=== PATIENT | female | born 2005 | race Caucasian/White ===

== ENCOUNTER 2024-06-13 22:09 | Emergency (ER) | payer OTHER, SELFPAY ==
--- NOTE | ~2024-06-13 | CT_ITS ---
History: Chronic migraines PROCEDURE: CT head without contrast. COMPARISON: None TECHNIQUE: Axial imaging of the head performed from the skull base to the vertex without IV contrast. Sagittal a nd coronal reformations obtained. DLP: 605 mGy-cm FINDINGS: The ventricles are normal in size, shape and position. There is no mass, mass effect or midline shift. There is no abnormal extra-axial fluid collection or intracranial hemorrhage. Visualized paranasal sinuses are clear. The mastoid air cells are well aerated. No acute displaced fractures within the overlying cranium. Impression: No acute intracranial hemorrhage or suspicious mass effect. Reviewed, dictated and finalized at location A. Impression: No acute intracranial hemorrhage or suspicious mass effect.
[2024-06-13 22:10] VITALS: BP 137/96; PULSE 80; RESP 15; TEMP 36.1; O2SAT 100
--- OUTSIDE RECORDS SUMMARY | 2024-06-13 22:11 | XMS_ITS | Referral Summary ---
Author Organization [facility] Address [address] [place] [address] Care Team Providers Care Director Of Athletics Name Role Phone Maryellen Barrett NP Primary Care Provider + Encounters Date Type Department Care Team Description 06/13/2024 Orders Only [facility] [address] [facility] [address] [place] [address] Maryellen Barrett NP New persistent daily headache (Primary Dx) 06/03/2024 Orders Only [facility] [address] [facility] [facility] [address] [place] [address] Maryellen Barrett NP from Last 3 Months Allergies No known active allergies Medications topiramate (TOPAMAX) 25 mg tablet TAKE 1 TABLET TWICE A DAY (NEED APPOINTMENT PRIOR TO ADDITIONAL REFILLS) 180 tablet 3 4 Active polysaccharide iron complex (NU-IRON) 150 mg iron capsuleIndicat ions:Iron Deficiency Anemia Take 1 capsule (150 mg total) by mouth daily 90 capsule 5 Active polysaccharide iron complex (NU-IRON) 150 mg iron capsuleIndicat ions:Iron Deficiency Anemia Take 1 capsule (150 mg total) by mouth daily 90 capsule 4 06/04/19 25 Discontin ued(Reord er) Active Problems Problem Noted Date Diagnosed Date Dysmenorrhea 11/30/2023 Assessment & Plan (11/30/2023 3:09 PM CDT): Labs Irregular menses 04/11/2022 New persistent daily headache 04/11/2022 Assessment & Plan (11/30/2023 3:10 PM CDT): Labs today Is on topamax 25mg BID Eye exam UTD Sleeps well Assessment & Plan (01/01/2023 3:34 PM CDT): Continue topamax 25mg BID Encouraged to wear glasses more Needs influenza vaccination Assessment & Plan (07/11/2022 11:02 AM CDT): Continue Topamax 25mg BID Assessment & Plan (04/11/2022 11:35 AM SIEBEL CONSULTANT): I encouraged her to return for repeat eye exam and ensure compliance with her glasses As these are daily I do not feel they are hormonal related We will trial topamax 25mg HS x 2 weeks if no improvement can increase to BID and notify me We will see her back in 3 months for further evaluation, sooner if needed Resolved Problems Problem Noted Date Diagnosed Date Resolved Date Left anterior cruciate ligament tear 09/10/2020 04/11/2022 Overview (09/10/2020): Added automatically from request for surgery [id number] Hypercholesterolemia 08/04/2019 023 On isotretinoin therapy 11/25/2016 02/0 05/2021 Postinflammatory hyperpigmentation 07/09/2015 04/11/2022 Acne 07/09/2015 04/11/2022 Immunizations Immunization Administration Dates Next Due DTaP, Unspecified 10/24/2008, 5,2003,07/02,2003 Flucelvax Influenza Quad 11/04/2019 HPV9 08/21/2016,04/25/2016,02/21/2016 Hep A, Unspecified 09/19/2011,10/24/2008 Hep B / HiB 03/11/2004,2003,2003 Influenza, Quadrivalent, Spl it, Intramuscular 01/30/2019 Influenza, Quadrivalent, Spl it, Preservative Free, Intramuscular 01/30/2019 Influenza, Unspecified 02/21/2016,02/19/2015,02/2004 MMR 10/24/2008,03/11/2004 Meningococcal B, unspecified 12/08/2014 Pneumococcal Conjugate PCV 13 03/11/2004 ,2003,2003,04/27 Polio, Unspecified 10/24/2008, 4,2003,04/27 Tdap 02/08/2014 Varicella 10/24/2008,08/22/2004 Social History Tobacco Use Types Packs/Day Years Used Date Smoking Tobacco: Never Smokeless Tobacco: Never AUDIT-C Answer Date Recorded Q1: How often do you have a drink containing alc ohol? Never 09/20/2020 Average Number of Drinks Not on file 021 Q3: How often do you have si x or more drinks on one occasion? Never 09/20/2020 Personal Safety Answer Date Recorded Getting School Help Needed Not on file 05/29 Comments No Sex and Gender Information Value Date Recorded Sex Assigned at Not on file Legal Sex Female 11:23 AM SIEBEL CONSULTANT Gender Identity Not on file Sexual Orientation Not on file Last Filed Vital Signs Vital Sign Reading Time Taken Comments Blood Pressure 126/84 11/30/2023 2:40 PM CDT Pulse 103 11/30/2023 2:40 PM CDT Temperature 36.6 C (97.8 F) 01/31/2022 2:34 PM SIEBEL CONSULTANT Respiratory Rate 18 10/08/2020 6:46 PM CDT Oxygen Saturation 98% 11/30/2023 2:40 PM CDT Inhaled Oxygen Concentration - - Weight 72.6 kg (160 lb) 11/30/2023 2:40 PM CDT Height 160 cm (5' 3 ) 11/30/2023 2:40 PM CDT Body Mass Index 28.34 11/30/2023 2:40 PM CDT Plan of Treatment Not on file Medical Devices Implanted Type Area Air Export Agent Device Identifier Shelf Expiration Date Model / Serial / Lot Luna [employer] Nephew Endoscopy [id number] Ultra Fast-Fix Curve Device Fixation Meniscal Repair System - [id number] Implanted:Qty: 1 on 10/02/2020 by Gama Luna MD at [facility] [place] Left: Knee [employer] Endoscopy 01/02/2025 [id number] / / [id number] [employer]hew Endoscopy [id number] Ultra Fast-Fix Curve Device Fixation Meniscal Repair System - [id number] Implanted:Qty: 1 on 10/02/2020 by Gama Luna MD at [facility] Left: Knee Luna [employer] Nephew Endoscopy 01/02/2025 [id number] / / [id number] [employer] Ar-1370e 7mm 20mm Cannulated Sheath Acl Pcl Screw Interference Titanium - [id number] Implanted:Qty: 1 on 10/02/2020 by Gama Luna MD at [facility] Left: Knee [employer] 04/15/2025 AR-1370E / / [id number] [employer] Ar-1370e 7mm 20mm Cannulated Sheath Acl Pcl Screw Interference Titanium - [id number] Implanted:Qty: 1 on 10/02/2020 by Gama Luna MD at [facility] Left: Knee [employer] 04/15/2025 AR-1370E / / [id number] Insurance [employer] OPEN ACCESS [employer] OPEN ACCESS LOCAL PLUS LOCAL PLUS Care Teams Director Of Athletics Relationship Specialty Start Date End Date Maryellen Barrett NP [address] [facility] [address] [address] PCP - General Nurse Practitioner 04/04/22
--- OUTSIDE RECORDS SUMMARY | 2024-06-13 22:11 | XMS_ITS | Encounter Summary ---
Author Organization [facility] Address [address] [place] [address] Care Team Providers Care Auctioneer Art Name Role Phone Maryellen Barrett NP Primary Care Provider + Reason for Referral * Consultation (Routine) - Pending Review Specialty Diagnoses / Procedures Referred By Rebel mckinney Referred To Contact Neurology Diagnoses New persistent daily headache Maryellen Barrett NP [address] [facility] [address] [address] Phone: tel: fax: Crista Shah MD PhD [address] [place] [address] Phone: tel: fax: Referral ID Status Reason Start Date Expiration Date Visits Requested Visits Authorized [id number] Pending Review Specialty Services Required 06/13/2024 07/13/2025 1 1 Question Answer Please select the performing region: [facility] (All Locations) [167] To provider: CRISTA SHAH [[id number]] # of visits: 1 Encounter Details Date Type Department Care Team (Late st Contact Info) Description 06/13/2024 Orders Only [facility] [address] [facility] [address] [place] [facility] [place] [address] Maryellen Barrett NP [address] [facility] [address] [place], [place] [id number] New persistent daily headache (Primary Dx) Social History Tobacco Use Types Packs/Day Years [...] on file Legal Sex Female 11:23 AM BUTTON MAKER AND INSTALLER Gender Identity Not on file Sexual Orientation Not on file documented as of this encounter Plan of Treatment Scheduled Referrals Name Type Priority Associated Diagnoses Order Schedule Ambulatory referral to Neurology Outpatient Referral Routine New persistent daily headache Expected: 06/20/2024 (Approximate), Expires: 06/13/2025 documented as of this encounter Visit Diagnoses Diagnosis New persistent daily headache- Primary New daily persistent headache documented in this encounter Care Teams Auctioneer Art Relationship Specialty Start Date End Date Maryellen Barrett NP [address] [facility] [address] [place] [address] PCP - General Nurse Practitioner 04/04/22 documented as of this encounter
--- OUTSIDE RECORDS SUMMARY | 2024-06-13 22:12 | XMS_ITS | Clinical Summary ---
Author Organization [facility] Address [address] [place] [address] Care Team Providers Care Contract Mail Carrier Name Role Phone Maryellen Barrett NP Primary Care Provider + Allergies No known active allergies Medications topiramate [...] BID Assessment & Plan (04/11/2022 11:35 AM BALLOON SELLER): I encouraged her to return for repeat [...] (09/10/2020): Added automatically from request for surgery [id number] Hypercholesterolemia 08/04/2019 023 On isotretinoin therapy 11/25/2016 02/0 05/2021 Postinflammatory hyperpigmentation 07/09/2015 04/11/2022 Acne 07/09/2015 04/11/2022 Encounters Date Type Department Care Team Description 06/13/2024 Orders Only [facility] [address] [place] [address] Maryellen Barrett NP New persistent daily headache (Primary Dx) 06/03/2024 Orders Only [facility] [address] [place] [address] Maryellen Barrett NP from Last 3 Months Immunizations Immunization Administration Dates Next Due DTaP, Unspecified 10/24/2008, 5,2003,07/02,2003 Flucelvax Influenza Quad 11/04/2019 HPV9 08/21/2016,04/25/2016,02/21/2016 Hep A, Unspecified 09/19/2011,10/24/2008 Hep B / HiB 03/11/2004,2003,2003 Influenza, Quadrivalent, Spl it, Intramuscular 01/30/2019 Influenza, Quadrivalent, Spl it, Preservative Free, Intramuscular 01/30/2019 Influenza, Unspecified 02/21/2016,02/19/2015,02/2004 MMR 10/24/2008,03/11/2004 Meningococcal B, unspecified 12/08/2014 Pneumococcal Conjugate PCV 13 03/11/2004 ,2003,2003,04/27 Polio, Unspecified 10/24/2008, 4,2003,04/27 Tdap 02/08/2014 Varicella 10/24/2008,08/22/2004 Surgical History Surgery Date Site/Laterality Comments ANTERIOR CRUCIATE LIGAMENT REPAIR 10/02/2020 Left Medical History Medical History Date Comments Headache 04/03/2020 Left anterior cruciate ligam ent tear 09/10/2020 Added automatically from [employer] for surgery [id number] Family History Medical History Relation Name Comments Anesthesia problems Mother Reports itchy all over anesthesia Heart disease Paternal Grandmother Relation Name Status Comments Mother Paternal Grandmother Social History Tobacco Use Types Packs/Day Years [...] on file Legal Sex Female 11:23 AM BALLOON SELLER Gender Identity Not on file Sexual Orientation Not on file Obstetrics History Last Filed Vital Signs Vital Sign Reading Time Taken Comments Blood Pressure 126/84 11/30/2023 2:40 PM CDT Pulse 103 11/30/2023 2:40 PM CDT Temperature 36.6 C (97.8 F) 01/31/2022 2:34 PM BALLOON SELLER Respiratory Rate 18 10/08/2020 6:46 PM CDT Oxygen Saturation 98% 11/30/2023 2:40 PM CDT Inhaled Oxygen Concentration - - Weight 72.6 kg (160 lb) 11/30/2023 2:40 PM CDT Height 160 cm (5' 3 ) 11/30/2023 2:40 PM CDT Body Mass Index 28.34 11/30/2023 2:40 PM CDT Plan of Treatment Health Maintenance Due Date Last Done Comments Cervical Cancer Screening 2003 Depression Screening 2003 Hepatitis C Screening 2003 Regular Well Visit/Exam 18-64 2021 Covid-19 Vaccine (5 - 2023-2 5 season) 2023 01/10/2022, 03/11/2021, 07/10/2020, Additional history exists DTaP/Tdap/Td Vaccine (7 - Td or Tdap) 02/09/2024 02/08/2014, 10/24/2008, 08/22/2004, Additional history exists Hepatitis B Screening Completed 03/11/2004 , 2003, 2003 Pneumococcal vaccine <65 Completed 004, 2003, 2003, Additional history exists Varicella Vaccines Completed 10/24/2008, 08/22/2004 HPV Vaccines Completed 08/21/2016, 04/16, 02/21/2016 Meningococcal Vaccine Completed 09/12/2020, 015 Meningococcal B Vaccine Completed 10/17/19 21, 09/12/2020, 12/08/2014 Influenza Vaccine Completed 02/09/2024, , 01/07/2021, Additional history exists Medical Devices Implanted Type Area Sandwich Counter Attendant Device Identifier Shelf Expiration Date Model / Serial / Lot Luna [employer] Nephew Endoscopy [id number] Ultra Fast-Fix Curve Device Fixation Meniscal Repair System - [id number] Implanted:Qty: 1 on 10/02/2020 by Gama Luna MD at [facility] [place] Left: Knee [employer] Endoscopy 01/02/2025 [id number] / / [id number] [employer]hew Endoscopy [id number] Ultra Fast-Fix Curve Device Fixation Meniscal Repair System - [id number] Implanted:Qty: 1 on 10/02/2020 by Gama Luna MD at [facility] [place] Left: Knee [employer] Endoscopy 01/02/2025 [id number] / / [id number] [employer] Ar-1370e 7mm 20mm Cannulated Sheath Acl Pcl Screw Interference Titanium - [id number] Implanted:Qty: 1 on 10/02/2020 by Gama Luna MD at [facility] Left: Knee [employer] 04/15/2025 AR-1370E / / [id number] [employer] Ar-1370e 7mm 20mm Cannulated Sheath Acl Pcl Screw Interference Titanium - [id number] Implanted:Qty: 1 on 10/02/2020 by Gama Luna MD at [facility] [place] Left: Knee [employer] 04/15/2025 AR-1370E / / [id number] Insurance [employer] OPEN ACCESS [employer] OPEN ACCESS LOCAL PLUS LOCAL PLUS Care Teams Contract Mail Carrier Relationship Specialty Start Date End Date Maryellen Barrett NP [address] [address] PCP - General Nurse Practitioner 04/04/22
--- OUTSIDE RECORDS SUMMARY | 2024-06-13 22:38 | XMS_ITS | Clinical Summary ---
Author Organization [facility] Address [address] [place] [address] Care Team Providers Care Package Wrapper Name Role Phone Unavailable Primary Care Provider Unavailabl e Source Comments [facility],non-owned Affiliates and Associated Physician Practices is amultiple site organization consisting of ambulatory clinics and hospital sitesin [place], [place], [place] and [place]. This disclosure is being madepursuant to the Care Everywhere program and may not contain all information available regarding this patient. Last updated 17.[employer] [facility] Allergies No known active allergies Medications Be aware that medications may not be up to date on this document. Always verify current medications with the patient. No known medications Active Problems No known active problems Family History Medical History Relation Name Comments Hyperlipidemia Mother Relation Name Status Comments Father Alive Maternal Grandfather Alive Maternal Grandmother Mother Alive Paternal Grandfather Paternal Grandmother Alive Sister 1 Alive Social History Tobacco Use Types Packs/Day Years Used Date Smoking Tobacco: Never Passive Smoke Exposure: Never Smokeless Tobacco: Never Tobacco Cessation:Counseling Given: No Alcohol Use Standard Drinks/Week Comments Never 0 (1 standard drink = 0.6 oz pur e alcohol) Sex and Gender Information Value Date Recorded Sex Assigned at Not on file Gender Identity Not on file Sexual Orientation Not on file Last Filed Vital Signs Vital Sign Reading Time Taken Comments Blood Pressure 122/74 02/13/2022 9:24 AM VETERINARIAN Pulse 80 02/13/2022 9:24 AM VETERINARIAN Temperature 37.2 C (98.9 F) 02/13/2022 9:24 AM VETERINARIAN Respiratory Rate 20 02/13/2022 9:24 AM VETERINARIAN Oxygen Saturation - - Inhaled Oxygen Concentration - - Weight 73 kg (161 lb) 02/13/2022 9:24 AM VETERINARIAN Height 162.6 cm (5' 4 ) 02/13/2022 9:24 AM VETERINARIAN Body Mass Index 27.64 02/13/2022 9:24 AM VETERINARIAN Plan of Treatment Health Maintenance Due Date Last Done Comments PAP SMEAR 2003 HIV SCREENING 2018 HPV VACCINE (1 - 3-dose series) 2018 CHLAMYDIA/GONORRHEA SCREENING 2019 MENINGOCOCCAL (Group B) VACC INE SHARED DECISION-MAKING (1 of 2 - Standard) 2019 HEPATITIS C SCREENING 02/18/2021 DTAP/TDAP/TD VACCINES (1 - Tdap) 2022 HEPATITIS B VACCINE (1 of 3 - 19+ 3-dose series) 2022 COVID-19 VACCINE (1 - 2023-2 5 season) 2023 INFLUENZA VACCINE (#1) 2023 DEPRESSION SCREENING 03/16/2024 ZOSTER VACCINE (1 of 2) 2053 HIB VACCINE Aged Out No longer eligi ble based on patient's age to complete this topic MENINGOCOCCAL GROUPS A/C/Y/W VACCINE Aged Out No longer eligible b ased on patient's age to complete this topic PNEUMOCOCCAL VACCINE Aged Out No long er eligible based on patient's age to complete this topic
--- OUTSIDE RECORDS SUMMARY | 2024-06-13 22:38 | XMS_ITS | Referral Summary ---
Author Organization [facility] Address [address] [place] [address] Care Team Providers Care Dude Ranch Manager Name Role Phone Maryellen Barrett NP Primary Care Provider + Encounters Date Type Department Care Team Description 06/13/2024 Orders Only [facility] [address] [facility] [place] [address] Maryellen Barrett NP New persistent daily headache (Primary Dx) 06/03/2024 Orders Only [facility] [address] [facility] [address] [place] [address] Maryellen Barrett NP from Last [...] BID Assessment & Plan (04/11/2022 11:35 AM GRAIN ELEVATOR MOTOR STARTER): I encouraged her to return for repeat [...] (09/10/2020): Added automatically from request for surgery [id number] Hypercholesterolemia 08/04/2019 023 On isotretinoin therapy 11/25/2016 [...] on file Legal Sex Female 11:23 AM GRAIN ELEVATOR MOTOR STARTER Gender Identity Not on file Sexual Orientation Not on file Last Filed Vital Signs Vital Sign Reading Time Taken Comments Blood Pressure 126/84 11/30/2023 2:40 PM CDT Pulse 103 11/30/2023 2:40 PM CDT Temperature 36.6 C (97.8 F) 01/31/2022 2:34 PM GRAIN ELEVATOR MOTOR STARTER Respiratory Rate 18 10/08/2020 6:46 PM CDT Oxygen Saturation 98% 11/30/2023 2:40 PM CDT Inhaled Oxygen Concentration - - Weight 72.6 kg (160 lb) 11/30/2023 2:40 PM CDT Height 160 cm (5' 3 ) 11/30/2023 2:40 PM CDT Body Mass Index 28.34 11/30/2023 2:40 PM CDT Plan of Treatment Not on file Medical Devices Implanted Type Area Promotional Representative Device Identifier Shelf Expiration Date Model / Serial / Lot Luna [employer] Nephew Endoscopy [id number] Ultra Fast-Fix Curve Device Fixation Meniscal Repair System - [id number] Implanted:Qty: 1 on 10/02/2020 by Gama Luna MD at [facility] [place] Left: Knee [employer]hew Endoscopy 01/02/2025 [id number] / / [id number] Luna [employer] Nephew Endoscopy [id number] Ultra Fast-Fix Curve Device Fixation Meniscal Repair System - [id number] Implanted:Qty: 1 on 10/02/2020 by Gama Luna MD at [facility] Left: Knee Luna [employer] Nephew Endoscopy 01/02/2025 [id number] / / [id number] [employer] Ar-1370e 7mm 20mm Cannulated Sheath Acl Pcl Screw Interference Titanium - [id number] Implanted:Qty: 1 on 10/02/2020 by Gama Luna MD at [facility] Left: Knee [employer] 04/15/2025 AR-1370E / / [id number] [employer] Ar-1370e 7mm 20mm Cannulated Sheath Acl Pcl Screw Interference Titanium - [id number] Implanted:Qty: 1 on 10/02/2020 by Gama Luna MD at [facility] Left: Knee [employer] 04/15/2025 AR-1370E / / [id number] Insurance [employer] OPEN ACCESS [employer] OPEN ACCESS LOCAL PLUS LOCAL PLUS Care Teams Dude Ranch Manager Relationship Specialty Start Date End Date Maryellen Barrett NP [address] [facility] [address] [address] PCP - General Nurse Practitioner 04/04/22
--- OUTSIDE RECORDS SUMMARY | 2024-06-13 22:38 | XMS_ITS | Encounter Summary ---
Author Organization [facility] Address [address] [place] [address] Care Team Providers Care Museum Archivist Name Role Phone Maryellen Barrett NP Primary Care Provider + Reason for Referral * Consultation (Routine) - Pending Review Specialty Diagnoses / Procedures Referred By Rebel mckinney Referred To Contact Neurology Diagnoses New persistent daily headache Maryellen Barrett NP [address] [facility] [address] [address] Phone: tel: fax: Crista Shah MD PhD [address] [place] [address] Phone: tel: fax: Referral ID Status Reason Start Date Expiration Date Visits Requested Visits Authorized [id number] Pending Review Specialty Services Required 06/13/2024 07/13/2025 1 1 Question Answer Please select the performing region: [facility] (All Locations) [167] To provider: CRISTA SHAH [[id number]] # of visits: 1 Encounter Details Date Type Department Care Team (Late st Contact Info) Description 06/13/2024 Orders Only [facility] [address] [facility] [address] [place] [address] Maryellen Barrett NP [address] [facility] [address] [place], [place] [id number] New persistent daily headache (Primary Dx) Social [...] on file Legal Sex Female 11:23 AM SHEET ROCK NAILER Gender Identity Not on file Sexual Orientation [...] headache documented in this encounter Care Teams Museum Archivist Relationship Specialty Start Date End Date Maryellen Barrett NP [address] [facility] [address] [place] [address] PCP - General Nurse Practitioner 04/04/22 documented as of this encounter
--- OUTSIDE RECORDS SUMMARY | 2024-06-13 22:38 | XMS_ITS | Clinical Summary ---
Author Organization [facility] Address [address] [place] [address] Care Team Providers Care Bilingual Trainer Name Role Phone Maryellen Barrett NP Primary [...] BID Assessment & Plan (04/11/2022 11:35 AM TANK OFFICER): I encouraged her to return for repeat [...] (09/10/2020): Added automatically from request for surgery [id number] Hypercholesterolemia 08/04/2019 023 On isotretinoin therapy 11/25/2016 02/0 05/2021 Postinflammatory hyperpigmentation 07/09/2015 04/11/2022 Acne 07/09/2015 04/11/2022 Encounters Date Type Department Care Team Description 06/13/2024 Orders Only [facility] [address] [place] [address] Maryellen Barrett NP New persistent daily headache (Primary Dx) 06/03/2024 Orders Only [facility] [address] [place] [address] Maryellen Barrett NP from Last 3 Months [...] ligam ent tear 09/10/2020 Added automatically from [employer] for surgery [id number] Family History Medical History Relation Name Comments [...] on file Legal Sex Female 11:23 AM TANK OFFICER Gender Identity Not on file Sexual Orientation Not on file Obstetrics History Last Filed Vital Signs Vital Sign Reading Time Taken Comments Blood Pressure 126/84 11/30/2023 2:40 PM CDT Pulse 103 11/30/2023 2:40 PM CDT Temperature 36.6 C (97.8 F) 01/31/2022 2:34 PM TANK OFFICER Respiratory Rate 18 10/08/2020 6:46 PM CDT [...] history exists Medical Devices Implanted Type Area Director Of Investigations Device Identifier Shelf Expiration Date Model / Serial / Lot Luna [employer] Nephew Endoscopy [id number] Ultra Fast-Fix Curve Device Fixation Meniscal Repair System - [id number] Implanted:Qty: 1 on 10/02/2020 by Gama Luna MD at [facility] [place] Left: Knee [employer] Endoscopy 01/02/2025 [id number] / / [id number] [employer]hew Endoscopy [id number] Ultra Fast-Fix Curve Device Fixation Meniscal Repair System - [id number] Implanted:Qty: 1 on 10/02/2020 by Gama Luna MD at [facility] [place] Left: Knee [employer] Endoscopy 01/02/2025 [id number] / / [id number] [employer] Ar-1370e 7mm 20mm Cannulated Sheath Acl Pcl Screw Interference Titanium - [id number] Implanted:Qty: 1 on 10/02/2020 by Gama Luna MD at [facility] Left: Knee [employer] 04/15/2025 AR-1370E / / [id number] [employer] Ar-1370e 7mm 20mm Cannulated Sheath Acl Pcl Screw Interference Titanium - [id number] Implanted:Qty: 1 on 10/02/2020 by Gama Luna MD at [facility] [place] Left: Knee [employer] 04/15/2025 AR-1370E / / [id number] Insurance [employer] OPEN ACCESS [employer] OPEN ACCESS LOCAL PLUS LOCAL PLUS Care Teams Bilingual Trainer Relationship Specialty Start Date End Date Maryellen Barrett NP [address] [address] PCP - General Nurse Practitioner 04/04/22
--- NOTE | 2024-06-13 23:32 | ED.HA ---
HPI - Headache General Chief Complaint: Headache Stated Complaint: migraine Time Seen by Provider: 06/13/24 22:23 Source: patient Mode of arrival: ambulatory Limitations: no limitations History of Present Illness HPI Narrative: This is a 19-year-old female that presents emergency department for headache. Reports history of migraines for which she takes topiramate. Reports she has had a nearly constant headache for last several days. She take Tylenol tonight with little relief. Related Data Allergies Allergy/AdvReac Type Severity Reaction Status Date / Time No Known Allergies Allergy Verified 06/13/24 22:16 Review of Systems Review of Systems: CONSTITUTIONAL: Denies fever EYES: Denies visual changes GASTROINTESTINAL: Denies vomiting NEUROLOGIC: Reports headache. Denies numbness, or weakness. All systems reviewed & are unremarkable except as noted in HPI and below PMFSH Past Medical History Medical History (Updated 06/14/24 @ 00:58 by Bebe Quesada PA-C) History of migraine Social History Social History (Updated 06/13/24 @ 23:35 by Bebe Quesada PA-C) Smoking status: Never smoker Exam Narrative: GENERAL: Well-appearing, well-nourished, and in no acute distress. HEAD: Normocephalic, atraumatic. EYES: PERRLA and EOMI. ENT: Nares clear, no rhinorrhea or epistaxis. Mucous membranes moist. Oropharynx without tonsillar hypertrophy exudate or other lesions. Bilateral TMs pearly paulson non-bulging NECK: Supple. No adenopathy or masses. CHEST: Clear to auscultation. No respiratory distress. No wheezes rales or rhonchi HEART: Regular rate and rhythm. No murmur heard. Normal peripheral pulses. ABDOMEN: Soft, nontender, nondistended, normal active bowel sounds. EXTREMITIES: Normal range of motion. No edema. Strength equal in bilateral upper and lower extremities (5/5) SKIN: Warm, dry, no rash. NEURO: No focal deficits. Alert and oriented x3. Cranial nerves 2-12 grossly intact PSYCH: Normal mood and affect Course Course Emergency Course: Patient and family updated on workup and agree with plan of care Vital Signs Vital signs: Vital Signs Temperature 97 F L 06/13/24 22:10 Pulse Rate 80 06/13/24 22:10 Respiratory Rate 15 06/13/24 22:10 Blood Pressure 137/96 H 06/13/24 22:10 Pulse Oximetry 100 06/13/24 22:10 Oxygen Delivery Room Air 06/13/24 22:10 Temperature 97 F L 06/13/24 22:10 Pulse Rate 80 06/13/24 22:10 Respiratory Rate 15 06/13/24 22:10 Blood Pressure 137/96 H 06/13/24 22:10 Pulse Oximetry 100 06/13/24 22:10 Oxygen Delivery Room Air 06/13/24 22:10 MDM - Headache MDM Narrative Medical decision making narrative: Patient presents to the emergency department for migraine headache. History of migraines. Takes topiramate for this. She is neurologically intact. CT brain without acute findings. Patient reports relief after migraine cocktail. She is to follow up with primary provider for further management. Was given information for follow-up with Neurology. She was given warnings to return to the ER Differential Diagnosis Differential diagnosis: Likely migraine, tension headache, subarachnoid hemorrhage, headache and sinusitis Imaging Data Radiologist's impression: ITS Impressions Head CT 06/13/24 23:43 Impression: No acute intracranial hemorrhage or suspicious mass effect. Critical Care Time Critical Care Time Critical Care Time: No Discharge Plan Discharge Clinical Impression: Headache Qualifiers: Headache type: unspecified Headache chronicity pattern: chronic headache Intractability: not intractable Qualified Code(s): R51.9 - Headache, unspecified Patient Disposition: Home, Self-Care Condition: Stable Instructions: Migraine Headache (ED) Additional Instructions: Return to the emergency department if you experience fever, vision changes, vomiting, weakness, numbness, or any other symptoms that are concerning to you. Rest. Remain well hydrated. Over the counter pain medication as needed Follow up with your primary care doctor Patient Language: Armenian Follow-up/Referrals: Stephanie Domínguez MD [Primary Care Provider] - Samy Espinal MD [Physician] -
[2024-06-13] MEDS: diphenhydrAMINE HCl INJ 50 MG/ML VIAL 25 MG IV PUSH (23:34)
[2024-06-13] MEDS: METOCLOPRAMIDE HCL INJ 10 MG/2 ML VIAL IV PUSH (23:34)
[2024-06-13] MEDS: SODIUM CHLORIDE 0.9% IV 1,000 ML 999 ML IV CONT (23:35)
[2024-06-14] MEDS: KETOROLAC 15 MG/ML VIAL (*BKC) IV PUSH (00:20)
== END 2024-06-14 01:02 | disposition home or self-care (01) ==
PROVIDERS: Emergency Provider Physician Assistant; PCP Pediatrics
DX: R51.9 Headache, unspecified (principal)
CPT/HCPCS: 70450; 96361; 96374; 96375; 99284; J1200; J1885; J2765; J7030